=== PATIENT | female | born 1995 | race Two or more races ===

== ENCOUNTER 2019-07-30 18:40 | Emergency (ER) | payer OTHER ==
[~2019-07-30] VITALS: Ht 172.7 cm; Wt 74.0 kg
[2019-07-30] MEDS ORDERED: ONDANSETRON HCL 4MG/2ML INJ IV STA (20:07)
[2019-07-30] MEDS ORDERED: MORPHINE SULFATE 4 MG/ML CPJ (NOT FOR IM USE) IV STA (20:07)
[2019-07-30] MEDS ORDERED: KETOROLAC 30MG/ML VIAL IV STA (20:07)
[2019-07-30] MEDS ORDERED: MORPHINE SULFATE 4 MG/ML CPJ (NOT FOR IM USE) IV ONE (22:00)
[2019-07-30 22:34] VITALS: BP 120/58
== END 2019-07-30 22:36 | disposition home or self-care (01) ==
LOC: ER 18:40
DX: S42.391A Other fracture of shaft of right humerus, initial encounter for closed fracture (principal); J45.909 Unspecified asthma, uncomplicated; W11.XXXA Fall on and from ladder, initial encounter; Y93.89 Activity, other specified; Y92.9 Unspecified place or not applicable
CPT/HCPCS: 29105; 73060; 73070; 96374; 96375; 96376; 99284; J1885; J2270; J2405